=== PATIENT | male | born 1965 | race Caucasian/White ===

== ENCOUNTER 2016-04-18 10:11 | Day surgery (SDC) | payer OTHER ==
[2016-04-16 10:40] VITALS: BMI 36.6
[~2016-04-18 10:11] MED LIST: LACTATED RINGERS 1,000 ML IV SCH; LIDOCAINE 1% 20 ML VIAL (10MG/ML) FOR IV START INTRADERMA PRN
[2016-04-18 10:50] VITALS: RESP 18; TEMP 97.2
[2016-04-18] MEDS ORDERED: LIDOCAINE 1% 20 ML VIAL (10MG/ML) FOR IV START INTRADERMA ONE (10:56)
--- NOTE | 2016-04-18 11:19 | P.GSHP ---
History of Present Illness H&P Date: 04/18/16 Chief Complaint: GERD This is a 51-year-old male with Dr. Radha Lemon. Patient presents today for EGD. He's had issues with GERD. Past Medical History Past Medical History: GERD/Reflux, Hyperlipidemia, Osteoarthritis (OA) Additional Past Medical History / Comment(s): CURRENT ABDOMINAL PAIN, DIFFICULTY SWALLOWING, HX. KIDNEY STONE History of Any Multi-Drug Resistant Organisms: None Reported Past Surgical History: Orthopedic Surgery, Tonsillectomy Additional Past Surgical History / Comment(s): NAVA FUNDLIPLASTY, 2 SURGERIES ON RIGHT SHOULDER Past Anesthesia/Blood Transfusion Reactions: No Reported Reaction Past Psychological History: No Psychological Hx Reported Smoking Status: Former smoker Past Alcohol Use History: None Reported Additional Past Alcohol Use History / Comment(s): QUIT SMOKING 06/2014, STARTED SMOKING 1982, SMOKED 1 PPD Past Drug Use History: None Reported - Past Family History Father Additional Family Medical History / Comment(s): PATERNAL GRANDMOTHER-COLON CA. PATERNAL GRANDFATHER-PROSTATE CA Medications and Allergies Home Medications Medication Instructions Recorded Confirmed Type Atorvastatin [Lipitor] 20 mg PO HS 01/26/15 04/18/16 History Allergies Allergy/AdvReac Type Severity Reaction Status Date / Time No Known Allergies Allergy Verified 04/16/16 10:37 Surgical - Exam Vital Signs Temp Pulse Resp BP Pulse Ox 97.2 F L 87 18 128/88 95 04/18/16 10:48 04/18/16 10:48 04/18/16 10:48 04/18/16 10:48 04/18/16 10:48 - General well developed, no distress - Eyes PERRL - ENT normal pinna - Neck no masses - Respiratory normal expansion - Cardiovascular Rhythm: regular - Abdomen Abdomen: soft, non tender Assessment and Plan Plan: GERD. We'll perform EGD.
[2016-04-18] MEDS ORDERED: fentaNYL (PF) 50 MCG/ML 2 ML AMP ONE (11:21)
[2016-04-18] MEDS ORDERED: MIDAZOLAM 2 MG/2 ML VIAL ONE (11:21)
[2016-04-18] MEDS ORDERED: PROPOFOL 10 MG/ML 20 ML VIAL IV ONE (11:21)
--- NOTE | 2016-04-18 11:34 | P.OP ---
Date of Procedure: 04/18/16 Preoperative Diagnosis: GERD Postoperative Diagnosis: Mild antral gastritis Esophagitis Possible slipped fundal plication Procedure(s) Performed: EGD Anesthesia: MAC Surgeon: Andi Joseph Pathology: other (Antrum, esophagus) Condition: stable Disposition: PACU Description of Procedure: The patient's placed on the endoscopy table in the lateral position. He received IV sedation. The gastroscope some placed oropharynx passed into the esophagus and into the stomach. Scope was then placed through the pylorus. The first and second portion of the duodenum appeared normal. Scope was then brought back the antrum this is minimally inflamed a biopsy was performed. The scope was then retroflexed and the remainder of the stomach appeared normal. The patient a previous fundoplication wrap. This appeared to be slightly below the GE junction. The wrap appeared to be displaced inferiorly. The GE junction was at 40 cm. The distal esophagus appeared inflamed a biopsies performed. The proximal esophagus appeared normal. Scope was withdrawn for patient. The patient scheduled for a esophagram
[2016-04-18 12:23] VITALS: BP 141/79; PULSE 88
== END 2016-04-18 12:47 | disposition home or self-care (01) ==
LOC: ORWHC2ENDO 10:11
PROVIDERS: ATTEND Surgery
DX: K21.0 Gastro-esophageal reflux disease with esophagitis (principal); K29.70 Gastritis, unspecified, without bleeding; E78.5 Hyperlipidemia, unspecified; Z79.899 Other long term (current) drug therapy; Z87.891 Personal history of nicotine dependence
CPT/HCPCS: 88305; 43239; J2250; J3010; J2704; 99153

== ENCOUNTER → 2016-04-19 | Outpatient (CLI) | payer OTHER ==
--- NOTE | 2016-04-19 12:55 | FL ---
EXAMINATION: Cervical and Thoracic Esophagram, single contrast DATE OF EXAM: 04/19/2016 10:13 AM CLINICAL INDICATION: 51-year-old male with GERD, fluid sticking in the mid esophagus. History of Niss en fundoplication in January 2015. EGD performed 24 hours ago with biopsies. COMPARISON: 02/17/2015 Total Fluoroscopy Time: 1.6 minutes FINDINGS: Single contrast exam was performed with thin barium given the patient's history of very recent biopsi es. Limited examination as the patient was unable to hold barium in his mouth for assessment of the cervi wong esophagus and was also unable to accomplish large continuous swallows. There is evidence of silent aspiration. Hypopharyngeal anatomy appears preserved. There is overall normal course and caliber of the thoracic esophagus. Very mild tertiary peristaltic waves are noted in the distal third esophagus. No obstruction or discrete filling defect is identified. No sizable hiatal hernia. There are postsurg ical changes of Marichuy fundoplication seen. IMPRESSION: 1. Status post Marichuy fundoplication. 2. No obstruction or discrete filling defect encountered along the esophagus. 3. There are technical limitations in the exam as the patient had difficulty holding barium in his mo uth and could also not tolerate large continuous swallows. 4. Evidence of silent aspiration. Recommend speech pathology consultation.
== END | disposition home or self-care (01) ==
LOC: RADFLWHC 09:08
PROVIDERS: ATTEND Surgery
DX: K21.9 Gastro-esophageal reflux disease without esophagitis (principal); Z98.890 Other specified postprocedural states
CPT/HCPCS: 74220

== ENCOUNTER → 2016-05-11 | Outpatient (CLI) | payer OTHER | END | disposition home or self-care (01) | LOC: LABPAT 09:16 | PROVIDERS: ATTEND Surgery | DX: Z01.812 Encounter for preprocedural laboratory examination (principal); Z01.810 Encounter for preprocedural cardiovascular examination | CPT/HCPCS: 93005 ==

== ENCOUNTER 2016-05-28 06:25 | Inpatient (IN) | payer OTHER ==
[2016-05-21 16:02] VITALS: BMI 37.5
[~2016-05-28 06:25] MED LIST changes: +DEXAMETHASONE SOD PHOSPHATE 10 MG/ML 1 ML VIAL IV ONE; +HEPARIN SODIUM,PORCINE 5,000 UNIT/ML 1 ML VIAL SQ ONE; +HYDROmorphone 1 MG/ML 1 ML SYRINGE IVP PRN; -LIDOCAINE 1% 20 ML VIAL (10MG/ML) FOR IV START INTRADERMA PRN; +MIDAZOLAM 2 MG/2 ML VIAL IV PRN; +ONDANSETRON 4 MG/2 ML VIAL IVP ONE; +ceFAZolin 2 GM in SODIUM CHLORIDE 0.9% 100 ML IVPB ONE
[2016-05-28] MEDS ORDERED: LIDOCAINE 1% 20 ML VIAL (10MG/ML) FOR IV START INTRADERMA ONE (06:46)
[2016-05-28 07:10] LABS: Basophils # (A) 0.1 k/uL (0-0.2); Basophils % (A) 1 %; CH 29.9; CHCM 34.1; Eosinophils # (A) 0.2 k/uL (0-0.7); Eosinophils % (A) 3 %; HCT 42.9 % (39.0-53.0); HDW 2.93; HGB 14.2 gm/dL (13.0-17.5); Luc % (Auto) 3; Lymphocytes % (A) 32 %; MCH 29.2 pg (25.0-35.0); MCHC 33.2 g/dL (31.0-37.0); MCV 87.8 fL (80.0-100.0); Mean Platelet Volume 8.2; Monocytes # (A) 0.4 k/uL (0-1.0); Monocytes % (A) 7 %; Neutrophils # (A) 3.5 k/uL (1.3-7.7); Neutrophils % (A) 55 %; RBC 4.88 m/uL (4.30-5.90); WBC 6.4 k/uL (3.8-10.6); WBC (Perox) 6.44
--- NOTE | 2016-05-28 07:47 | P.GSHP ---
History of Present Illness H&P Date: 05/28/16 Chief Complaint: GERD This a 51-year-old male referred from Dr. Lemon.The patient has had long- standing problems with reflux esophagitis. The patient underwent recent EGD is found have evidence of esophagitis. Patient has been well informed on the procedure of laparoscopic Marichuy fundoplication. The patient is aware the risk of the conversion to the open procedure, risk of injury to the stomach, liver and spleen. The patient is also a risk of recurrent GERD and dysphagia symptoms. The patient understands there is a postoperative diet of full liquids for 2 weeks after surgery. - Constitutional Constitutional: Reports as per HPI Past Medical History Past Medical History: GERD/Reflux, Hyperlipidemia, Osteoarthritis (OA) Additional Past Medical History / Comment(s): HX KIDNEY STONE. OA RT SHOULDER. EXTRACTION 7 TEETH ON 05/18/16. History of Any Multi-Drug Resistant Organisms: None Reported Past Surgical History: Orthopedic Surgery, Tonsillectomy Additional Past Surgical History / Comment(s): NAVA FUNDOPLICATION. RT SHOULDER X2. Past Anesthesia/Blood Transfusion Reactions: No Reported Reaction Past Psychological History: No Psychological Hx Reported Smoking Status: Former smoker Past Alcohol Use History: None Reported Additional Past Alcohol Use History / Comment(s): QUIT SMOKING 06/2015, SMOKED 1PPD STARTED SMOKING 1982 Past Drug Use History: None Reported - Past Family History Mother Family Medical History: No Reported History Father Additional Family Medical History / Comment(s): PATERNAL GRANDMOTHER-COLON CA. PATERNAL GRANDFATHER-PROSTATE CA Medications and Allergies Home Medications Medication Instructions Recorded Confirmed Type Atorvastatin [Lipitor] 20 mg PO HS 01/26/15 05/21/16 History Omeprazole 40 mg PO DAILY 05/10/16 05/21/16 History Ibuprofen [Motrin] 800 mg PO Q8H PRN 05/21/16 05/21/16 History Allergies Allergy/AdvReac Type Severity Reaction Status Date / Time No Known Allergies Allergy Verified 05/21/16 15:40 Surgical - Exam Vital Signs Temp Pulse Resp BP Pulse Ox 97.8 F 67 18 160/94 98 05/28/16 06:43 05/28/16 06:43 05/28/16 06:43 05/28/16 06:43 05/28/16 06:43 - General well developed, no distress - Eyes PERRL - Neck no masses - Respiratory normal expansion - Cardiovascular Abnormal Heart Sounds: systolic murmur - Abdomen Abdomen: soft, non tender Results - Labs 05/28/16 06:47 Assessment and Plan Plan: GERD. We'll perform laparoscopic Marichuy fundal plication.
[2016-05-28] MEDS ORDERED: NEOSTIGMINE 1 MG/ML 10 ML VIAL ONE (07:50)
[2016-05-28] MEDS ORDERED: fentaNYL (PF) 50 MCG/ML 2 ML AMP ONE (07:50)
[2016-05-28] MEDS ORDERED: LIDOCAINE 1% INJ 10MG/ML (20 ML MDV) ONE (07:50)
[2016-05-28] MEDS ORDERED: PHENYLEPHRINE-0.9% NACL SYG 1 MG/10 ML SYRINGE ONE (07:50)
[2016-05-28] MEDS ORDERED: SUCCINYLCHOLINE CHLORIDE 100 MG/5 ML SYR IV ONE (07:50)
[2016-05-28] MEDS ORDERED: PROPOFOL 10 MG/ML 20 ML VIAL IV ONE (07:50)
[2016-05-28] MEDS ORDERED: ROCURONIUM BROMIDE 10 MG/ML 10 ML VIAL IV ONE (07:50)
[2016-05-28] MEDS ORDERED: MIDAZOLAM 2 MG/2 ML VIAL ONE (07:50)
[2016-05-28] MEDS ORDERED: GLYCOPYRROLATE 0.2 MG/ML 2 ML VIAL ONE (07:50)
[2016-05-28] MEDS ORDERED: BUPIVACAIN-EPI 0.25%-1:200,000 30 ML VIAL SQ ONE (08:24)
[2016-05-28] MEDS ORDERED: METHYLENE BLUE 15 MG in SODIUM CHLORIDE 0.9% 500 ML IRRIGATION ONE (08:45)
--- NOTE | 2016-05-28 09:20 | P.OP ---
Date of Procedure: 05/28/16 Preoperative Diagnosis: GERD Dysphagia Slipped fundal plication Postoperative Diagnosis: Slipped fundoplication Procedure(s) Performed: Lysis of adhesion Marichuy fundoplication with 180 wrap Gastrorrhaphy Anesthesia: RENETTA Surgeon: Andi Joseph Estimated Blood Loss (ml): 5 Pathology: other (Stomach) Condition: stable Disposition: PACU Description of Procedure: The patient's placed on the operating table in the supine position. He received general anesthesia and then was placed in dorsal lithotomy position. The the abdomen was prepped and draped usual sterile fashion. The skin incision sites were anesthetized 1% local Xylocaine. Using 11 blade the skin was incised in the left periumbilical area and then using a 5 mm blade less trocar under direct visitation the peritoneal cavity is entered. The abdomen was insufflated and then after adequate insufflation the laparoscope placed back into the pleural cavity. Next a 5 mm trocar was placed in the right epigastric position and another 5 mm trochars placed in the right lateral position and then the left lateral position and then a 8 mm trocar was placed epigastric position. The left lateral lobe liver was retracted. The fundoplication wrap was examined. There were adhesions between the stomach and liver. These were lysed with sharp dissection. The fundoplication wrap was visualized and then the fundoplication wrap was taken down from the liver. On dissection of the fundoplication wrap there was some serosal tears of the stomach. The fundoplication wrap was undone. And then the stomach fundoplication was repaired by undoing the fundoplication. At this point the medial area of the fundoplication wrap was examined. Due to the seromuscular tears on the stomach was decided perform a small wedge resection of the stomach in order to prevent any risk of leakage. The 5 mm left periumbilical trocar was exchanged for a 12 mm trocar. And then powered echelon stapler was used to perform a wedge resection of the gastric fundus. The stomach was then insufflated methylene blue normal saline. There is no evidence of any leakage of the stomach. The small gastric wedge specimen was brought up through the 12 mm trocar site. The abdomen was irrigated. As no bleeding seen. The 180 wrap was left in position. At this point the trochars withdrawn. The skin was closed interrupted 3-0 Monocryl suture. Dermabond dressings was applied. Patient top procedure well and was sent to recovery in stable condition.
[2016-05-28] MEDS ORDERED: LACTATED RINGERS 1,000 ML IV ONE ×3 (09:22→13:39)
[2016-05-28] MEDS ORDERED: ONDANSETRON 4 MG/2 ML VIAL IVP PRN (09:22)
[2016-05-28] MEDS ORDERED: HYDROcodone/APAP 5-325MG 1 EACH TAB PO PRN (09:22)
[2016-05-28] MEDS ORDERED: ACETAMINOPHEN TAB 325 MG TAB PO PRN (09:22)
[2016-05-28] MEDS ORDERED: NALOXONE 0.4 MG/ML 1 ML VIAL IV PRN (09:22)
[2016-05-28] MEDS: HYDROmorphone 1 MG/ML 1 ML SYRINGE IVP PRN ×3 (09:51→10:29)
[2016-05-28] MEDS ORDERED: HYDROmorphone 1 MG/ML 1 ML SYRINGE IVP ONE (11:34)
[2016-05-28] MEDS ORDERED: HYDROcodone/APAP 7.5-325MG 1 EACH TAB PO ONE (11:47)
--- NOTE | 2016-05-28 16:05 | FL ---
Single contrast esophagram EXAMINATION TYPE: FL UGI w esophagus DATE OF EXAM: 05/28/2016 3:50 PM COMPARISON: April 19, 2016 CLINICAL HISTORY: Status post Maxim fundoplication ReVision The patient ingested contrast without difficulty or delay. Noted are changes of Maxim fundoplicatio n. Small outpouching at the GE junction is likely related to postoperative change rather than a leak . There is no evidence for leak or obstruction. Small amount of residual contrast within the distal e sophagus. IMPRESSION: Post-surgical change of Maxim fundoplication without evidence for obstruction or definit e leak.
[2016-05-28] MEDS: KETOROLAC 30 MG/ML 1 ML VIAL IVP SCH ×3 (16:12→21:28)
[2016-05-29] MEDS: KETOROLAC 30 MG/ML 1 ML VIAL IVP SCH ×2 (03:58→09:06)
[2016-05-29 07:43] VITALS: BP 107/76; PULSE 70; RESP 18; TEMP 96.2
--- NOTE | 2016-05-29 14:23 | P.DS ---
Providers Date of admission: 05/28/16 06:25 Expected date of discharge: 05/29/16 Attending physician: Andi Joseph Consults: 05/28/16 09:22 Consult Physician Routine Consulting Provider: Fritz Lemon Consult Reason/Comments: Medical management Do you want consulting provider notified?: Yes Primary care physician: Fritz Lemon Hospital Course: Patient is a 51-year-old male, referred from Dr. Lemon, with medical history significant for GERD and previous Marichuy fundoplication in 2014. Approximately 2 weeks ago, patient started experiencing symptoms of dysphagia. Upper GI and EGD showed evidence of possible slipped fundoplication. Patient presented for elective laparoscopic Marichuy fundoplication and underwent lysis of adhesions; Maxim fundoplication with 180 wrap; and gastrorrhaphy. Patient tolerated procedure well. Postoperative upper GI/barium swallow x-ray without evidence of leak or perforation. Patient had an uneventful postoperative recovery and was deemed stable for discharge to home with follow-up in the outpatient setting. Discharge diagnoses: 1. GERD. 2. Slipped fundoplication. 3. Dysphagia. 4. Status post lysis of adhesions; Maxim fundoplication with 180 wrap; gastrorrhaphy The above impression and plan have been discussed and directed by Dr. Joseph. Rabia GUAMAN acting as scribe for Dr. Joseph. Pertinent Studies: Upper GI/barium swallow x-ray Procedures: Lysis of adhesion Marichuy fundoplication with 180 wrap Gastrorrhaphy Patient Condition at Discharge: Good Plan - Discharge Summary New Discharge Prescriptions: HYDROcodone/APAP 7.5-325MG [[place] 7.5-325] 1 each PO Q4H PRN #60 tab PRN Reason: Pain Discharge Medication List Atorvastatin [Lipitor] 20 mg PO HS 01/26/15 [History] HYDROcodone/APAP 7.5-325MG [[place] 7.5-325] 1 each PO Q4H PRN #60 tab 05/28/16 [ Rx] Follow up Appointment(s)/Referral(s): Fritz Lemon MD [Primary Care Provider] - 06/05/16 10:10 am Andi Joseph MD [STAFF PHYSICIAN] - 06/12/16 2:10 pm Patient Instructions/Handouts: *Surgery [facility] - ([facility]) Lap Marichuy Fundiplication Post-Op Instructions, Hydrocodone/Acetaminophen (By mouth) Activity/Diet/Wound Care/Special Instructions: No heavy lifting, pushing, or pulling items greater than 10 pounds. Full liquid diet for 2 weeks. No caffeinated beverages or straws. Shower daily, no soaking in bath tubs, pools, or hot tubs. No driving while taking pain medication. Notify surgeon with any signs or symptoms of infection, increased pain, or not tolerating diet. Discharge Disposition: HOME SELF-CARE
== END 2016-05-29 12:10 | disposition home or self-care (01) | DRG 328 ==
LOC: 2ORWHC 06:25 → 5MS5E 14:53
PROVIDERS: ADMIT Surgery; ATTEND Surgery
PROC: 0DQ64ZZ Repair Stomach, Percutaneous Endoscopic Approach (ICD-10-PCS; 2016-05-28)
PROC: 0DV44ZZ Restriction of Esophagogastric Junction, Percutaneous Endoscopic Approach (ICD-10-PCS; principal; 2016-05-28 07:40)
DX: K91.89 Other postprocedural complications and disorders of digestive system (principal); R13.10 Dysphagia, unspecified; Y83.8 Other surgical procedures as the cause of abnormal reaction of the patient, or of later complication, without mention of misadventure at the time of the procedure; E78.5 Hyperlipidemia, unspecified; K21.9 Gastro-esophageal reflux disease without esophagitis; M19.011 Primary osteoarthritis, right shoulder; Z79.899 Other long term (current) drug therapy; Z80.0 Family history of malignant neoplasm of digestive organs; Z87.442 Personal history of urinary calculi; Z87.891 Personal history of nicotine dependence; K44.9 Diaphragmatic hernia without obstruction or gangrene
CPT/HCPCS: 74240; 85025; 88307

== ENCOUNTER → 2017-01-28 | Outpatient (CLI) | payer OTHER ==
--- NOTE | 2017-01-28 08:57 | US ---
EXAMINATION TYPE: US abdomen complete DATE OF EXAM: 01/28/2017 COMPARISON: None CLINICAL HISTORY: 52-year-old male K21.0 Gastroesophageal Reflux Disease. Patient stated has GERD wit h history of Marichuy Fundoplication and revision; HT5'10 and WT 267lbs; on meds for cholesterol and GE RD; prior left renal stone. TECHNIQUE: Multiple sonographic images of the abdomen are obtained. FINDINGS: Liver Length: 18.3 cm Gallbladder Wall: 0.2 cm CBD: 0.6 cm Spleen: 11.3 cm Right Kidney: 11.4 x 6.7 x 5.1 cm Left Kidney: 11.5 x 6.4 x 5.8 cm Pancreas: Only a small portion of the pancreatic neck is seen. Remainder suboptimally visualized due to shadowing from bowel gas. Liver: Mildly enlarged and markedly echogenic and attenuating. This secondary limits assessment for f ocal lesion. Gallbladder: wnl Evidence for sonographic Zuniga's sign: No CBD: upper limits of normal Spleen: wnl Right Kidney: wnl Left Kidney: wnl Upper IVC: wnl Abd Aorta: wnl IMPRESSION: 1. Mild hepatomegaly but with marked hepatic steatosis. Correlate with LFTs, lipid profile, and patie nt risk factors. 2. No cholelithiasis or biliary ductal dilatation.
== END | disposition home or self-care (01) ==
LOC: RADUSWWP 07:30
PROVIDERS: ATTEND Family Medicine
DX: K76.0 Fatty (change of) liver, not elsewhere classified (principal); R16.0 Hepatomegaly, not elsewhere classified; K21.0 Gastro-esophageal reflux disease with esophagitis
CPT/HCPCS: 76700

== ENCOUNTER → 2017-06-17 | Outpatient (CLI) | payer OTHER ==
--- NOTE | 2017-06-17 10:46 | FL ---
EXAMINATION TYPE: FL barium swallow DATE OF EXAM: 06/17/2017 CLINICAL HISTORY: Recurrent gastroesophageal reflux and nausea status post Marichuy fundoplication x 2 . TECHNIQUE: Single contrast esophagram was performed. 1min 51sec fluoroscopic time was utilized with 3 8 images saved. FINDINGS: The patient swallowed contrast without difficulty or delay. Esophageal peristalsis and mo tility are within normal limits. There is good flow of contrast along the diaphragmatic hiatus into t he stomach, there is no evidence of contrast extravasation to suggest leak. A small recurrent hiatal hernia is seen persistently throughout the examination. No gastroesophageal reflux is seen in the gra vity dependent portion of the examination, however moderate gastroesophageal reflux is seen to the le yumiko of the midthoracic esophagus on the gravity independent portion of the examination. IMPRESSION: 1. Small recurrent hiatal hernia with moderate gastroesophageal reflux level of the midthoracic esoph kay in the gravity independent portion of the examination without Valsalva maneuver. 2. No evidence of leak or significant obstruction.
== END | disposition home or self-care (01) ==
LOC: RADFLMAIN 10:02
PROVIDERS: ATTEND Surgery
DX: K44.9 Diaphragmatic hernia without obstruction or gangrene (principal); K21.9 Gastro-esophageal reflux disease without esophagitis
CPT/HCPCS: 74220

== ENCOUNTER 2020-06-30 07:20 | Day surgery (SDC) | payer BC, OTHER ==
[~2020-06-30 07:20] MED LIST changes: -DEXAMETHASONE SOD PHOSPHATE 10 MG/ML 1 ML VIAL IV ONE; -HEPARIN SODIUM,PORCINE 5,000 UNIT/ML 1 ML VIAL SQ ONE; -HYDROmorphone 1 MG/ML 1 ML SYRINGE IVP PRN; +LIDOCAINE 1% (10MG/ML) FOR IV START INTRADERMA PRN; -MIDAZOLAM 2 MG/2 ML VIAL IV PRN; -ONDANSETRON 4 MG/2 ML VIAL IVP ONE; -ceFAZolin 2 GM in SODIUM CHLORIDE 0.9% 100 ML IVPB ONE
[2020-06-30 07:44] VITALS: RESP 16; TEMP 97.8
[2020-06-30 07:53] LABS: Glucose,Whole Blood 178 mg/dL (75-99)
[2020-06-30] MEDS ORDERED: PROPOFOL 10 MG/ML 20 ML VIAL IV ONE (08:14)
[2020-06-30] MEDS ORDERED: LIDOCAINE 1% INJ 10MG/ML (20 ML MDV) ONE (08:14)
--- NOTE | 2020-06-30 08:31 | P.OP ---
Date of Procedure: 06/30/20 Preoperative Diagnosis: Screening colonoscopy Postoperative Diagnosis: Diverticulosis Procedure(s) Performed: Colonoscopy Anesthesia: MAC Surgeon: Andi Joseph Pathology: none sent Condition: stable Disposition: PACU Description of Procedure: The patient's placed on the endoscopy table in the lateral position. He received IV sedation. Digital rectal exam was performed which revealed no abnormalities. Flexible colonoscope was then placed patient anus passed throughout the entire colon. The ileocecal valve was visually is. The cecum, ascending and transverse colon appeared normal. In the descending; there is moderate diverticular changes. There was no evidence of diverticulitis. The scope was then brought back the rectum and this appeared normal. Scope the scope was withdrawn for patient.
[2020-06-30 08:49] VITALS: BP 143/90; PULSE 69
--- NOTE | 2020-06-30 08:59 | P.GSHP ---
History of Present Illness H&P Date: 06/30/20 Chief Complaint: Screening colonoscopy This a 55-year-old male presents safe for screening colonoscopy. Patient denies a significant GI complaints.. Past Medical History Past Medical History: GERD/Reflux, Hypertension, Osteoarthritis (OA) Additional Past Medical History / Comment(s): HX KIDNEY STONE. EXTRACTION 7 TEETH ON 05/18/16. History of Any Multi-Drug Resistant Organisms: None Reported Past Surgical History: Orthopedic Surgery, Tonsillectomy Additional Past Surgical History / Comment(s): NAVA FUNDOPLICATION. RT SHOULDER X2. Past Anesthesia/Blood Transfusion Reactions: No Reported Reaction Past Psychological History: No Psychological Hx Reported Smoking Status: Former smoker Past Alcohol Use History: None Reported Additional Past Alcohol Use History / Comment(s): QUIT SMOKING 06/2015, SMOKED 1PPD STARTED SMOKING 1982 Past Drug Use History: None Reported - Past Family History Mother Family Medical History: No Reported History Father Additional Family Medical History / Comment(s): PATERNAL GRANDMOTHER-COLON CA. PATERNAL GRANDFATHER-PROSTATE CA Medications and Allergies Home Medications Medication Instructions Recorded Confirmed Type Losartan [Cozaar] 25 mg PO QAM 06/28/20 06/30/20 History metFORMIN HCL 500 mg PO BID 06/28/20 06/30/20 History Allergies Allergy/AdvReac Type Severity Reaction Status Date / Time No Known Allergies Allergy Verified 06/30/20 07:38 Surgical - Exam Vital Signs Temp Pulse Resp BP Pulse Ox 97.8 F 65 16 147/80 97 06/30/20 07:43 06/30/20 07:43 06/30/20 07:43 06/30/20 07:43 06/30/20 07:43 - General well developed, well nourished, no distress - Eyes PERRL - ENT normal pinna - Neck no masses - Respiratory normal expansion - Cardiovascular Rhythm: regular - Abdomen Abdomen: soft, non tender Results - Labs Abnormal Lab Results - Last 24 Hours (Table) 06/30/20 Range/Units 07:51 POC Glucose (mg/dL) 178 H (75-99) mg/dL Assessment and Plan Assessment: We'll perform screening colonoscopy.
== END 2020-06-30 09:36 | disposition home or self-care (01) ==
LOC: ORWHC2ENDO 07:20
PROVIDERS: ATTEND Surgery
DX: Z12.11 Encounter for screening for malignant neoplasm of colon (principal); K57.30 Diverticulosis of large intestine without perforation or abscess without bleeding; K21.9 Gastro-esophageal reflux disease without esophagitis; I10 Essential (primary) hypertension; M19.90 Unspecified osteoarthritis, unspecified site; Z79.84 Long term (current) use of oral hypoglycemic drugs; Z79.899 Other long term (current) drug therapy; Z80.0 Family history of malignant neoplasm of digestive organs; Z80.42 Family history of malignant neoplasm of prostate; Z87.442 Personal history of urinary calculi; Z87.891 Personal history of nicotine dependence
CPT/HCPCS: J2001; J2704; G0121

== ENCOUNTER → 2022-07-16 | Outpatient (CLI) | payer BC ==
--- NOTE | 2022-07-16 11:37 | US ---
EXAMINATION TYPE: US carotid duplex BILAT DATE OF EXAM: 07/16/2022 COMPARISON: NONE CLINICAL INDICATION: Male, 57 years old with history of G45.9 TRANSIENT CEREBRAL ISCHEMIC ATTACK; TIA . Prior smoker. TECHNIQUE: Carotid duplex ultrasound examination. Indirect Doppler criteria was utilized. FINDINGS: EXAM MEASUREMENTS: RIGHT: Peak Systolic Velocity (PSV) cm/sec ----- Right CCA: 68.2 ----- Right ICA: 58.8 ----- Right ECA: 99.8 ICA/CCA ratio: 0.86 RIGHT: End Diastole cm/sec ----- Right CCA: 11.5 ----- Right ICA: 16.9 ----- Right ECA: 13.7 LEFT: Peak Systolic Velocity (PSV) cm/sec ----- Left CCA: 59.2 ----- Left ICA: 80.8 ----- Left ECA: 120 ICA/CCA ratio: 1.36 LEFT: End Diastole cm/sec ----- Left CCA: 15.0 ----- Left ICA: 29.6 ----- Left ECA: 18.8 VERTEBRALS (direction of flow): Right Vertebral: Unable to visualize Left Vertebral: Antegrade Rhythm: Normal SUPERVISOR POST WAVE NOTES: Some plaque was seen within bilateral bulbs and bifurcations. No elevated velociti es. *Unable to visualize right vertebral artery. IMPRESSION: No hemodynamically significant stenosis in either internal carotid artery. Criteria for Assigning % of Stenosis / Diameter reduction (Estimation based on the indirect measurements of the internal carotid artery velocities (ICA PSV). 1. Normal (no stenosis)=ICA PSV < 125 cm/s: ratio < 2.0: ICA EDV<40 cm/s. 2. Less than 50% stenosis=ICA PSV < 125 cm/s: ratio < 2.0: ICA EDV<40 cm/s. 3. 50 to 69% stenosis=ICA PSV of 125 to 230 cm/s: ration 2.0 ? 4.0: ICA EDV 40-100 cm/s. 4. Greater than 70% stenosis to near occlusion= ICA PSV > 230 cm/s: ratio > 4.0: ICA EDV > 100 cm/s. 5. Near occlusion= ICA PSV velocities may be low or undetectable: variable ratio and ICA EDV. 6. Total occlusion=unable to detect flow.
--- NOTE | 2022-07-16 11:45 | CT ---
EXAMINATION TYPE: CT brain wo con CT DLP: 1217.1 mGycm, Automated exposure control for dose reduction was used. DATE OF EXAM: 07/16/2022 11:38 AM COMPARISON: None. CLINICAL INDICATION:Male, 57 years old with history of G45.9, Transient cerebral ischemic attack TECHNIQUE: Brain: Multiple axial CT images of the brain were obtained without IV contrast. Coronal and sagittal reformats reviewed. FINDINGS: Brain: Extra-axial spaces: No abnormal extra-axial fluid collections. Ventricular system: Within normal limits Cerebral parenchyma: No acute intraparenchymal hemorrhage or mass effect. The soto-white junction is well differentiated. Remote lacunar injury versus prominent perivascular space of the left inferior basal ganglia. Cerebellum: Unremarkable. Mass effect: No evidence of midline shift. Intracranial vasculature: Atherosclerotic calcifications of the intracranial vessels. Soft tissues: Normal. Calvarium/osseous structures: No depressed skull fracture. Paranasal sinuses and mastoid air cells: Clear Visualized orbits: Orbital contents are intact. IMPRESSION: 1. No acute intracranial process. 2. Remote lacunar injury versus prominent perivascular space in the left inferior basal ganglia.
--- NOTE | 2022-07-16 12:34 | CA ---
Transthoracic Echo Report Name: Jose Gray Age: 57 Gender: M : 1965 Exam Date: 07/16/2022 11:55 Exam Location: [facility] Ht (in): 70 Wt (lb): 236 Ordering Physician: Fritz Lemon MD Attending/Referring Phys: Fritz Lemon MD Bench Inspector Linda Schroeder, [facility] Procedure CPT: Indications: G45.9 Cardiac Hx: Technical Quality: Good Contrast 1: Total Dose (mL): Contrast 2: Total Dose (mL): MEASUREMENTS (Male / Female) Normal Values 2D ECHO LV Diastolic Diameter PLAX 4.6 cm 4.2 - 5.9 / 3.9 - 5.3 cm LV Systolic Diameter PLAX 3.0 cm IVS Diastolic Thickness 1.2 cm 0.6 - 1.0 / 0.6 - 0.9 cm LVPW Diastolic Thickness 1.1 cm 0.6 - 1.0 / 0.6 - 0.9 cm LV Relative Wall Thickness 0.5 RV Internal Dim ED PLAX 3.4 cm LA Systolic Diameter LX 3.3 cm 3.0 - 4.0 / 2.7 - 3.8 cm LA Volume 53.6 cm??? 18 - 58 / 22 - 52 cm??? M-MODE Aortic Root Diameter MM 3.6 cm MV E Point Septal Separation 0.8 cm AV Cusp Separation MM 2.4 cm DOPPLER AV Peak Velocity 143.9 cm/s AV Peak Gradient 8.3 mmHg MV Area PHT 4.3 cm??? Mitral E Point Velocity 92.8 cm/s Mitral A Point Velocity 74.2 cm/s Mitral E to A Ratio 1.3 MV Deceleration Time 174.6 ms MV E' Velocity 8.4 cm/s Mitral E to MV E' Ratio 11.0 FINDINGS Left Ventricle Left ventricular ejection fraction is estimated at 55-60 %. Left ventricular cavity size normal. Mildly increased septal wall thickness. Right Ventricle Mild right ventricular dilatation. No TR unable to estimate the right ventricular systolic pressure. Right Atrium Normal right atrial size. Left Atrium Normal left atrial size. Mitral Valve Structurally normal mitral valve. No mitral stenosis or prolapse. Mild mitral regurgitation Aortic Valve Trileaflet aortic valve. Tricuspid Valve Structurally normal tricuspid valve. No tricuspid stenosis, or prolapse. Trace tricuspid regurgitation Pulmonic Valve Pulmonic valve not well visualized. Pericardium Normal pericardium. No pericardial effusion. Aorta Normal size aortic root and proximal ascending aorta. CONCLUSIONS 1. Normal left ventricle size and systolic function 2. Mild mitral regurgitation Previewed by: Dr. Nilson Smith MD (Electronically Signed) Final Date: 16 Jul 2022 12:33
== END | disposition home or self-care (01) ==
LOC: RADUSWWP 10:43
PROVIDERS: ATTEND Family Medicine
DX: G45.9 Transient cerebral ischemic attack, unspecified (principal); Z87.891 Personal history of nicotine dependence
CPT/HCPCS: 70450; 93306; 93880

== ENCOUNTER → 2024-06-03 | Outpatient (CLI) | payer BC ==
--- NOTE | 2024-06-03 08:14 | MR ---
EXAMINATION TYPE: MR brain wo con DATE OF EXAM: 06/03/2024 7:06 AM COMPARISON: None. CLINICAL INDICATION: Male, 59 years old with history of Z86.73 HX OF TIA R20.0 LEFT FACIAL NUMBNESS, Left facial numbness, possible stroke TECHNIQUE: Multi planar multi sequence imaging of the brain. FINDINGS: The ventricles, basal cisterns and sulci overlying the cerebral convexities are mildly enlarged. There is evidence of mild periventricular white matter ischemic demyelination. Remote deep white matter insults are also noted. No acute edema is seen on diffusion weighted imaging. There is no evidence for midline shift or mass effect. Acute intracranial hemorrhage or extra-axial collection is not evident. The mastoid air cells are well-aerated. Mucosal thickening maxillary ethmoidal and frontal sinuses. IMPRESSION: Age-related atrophic and chronic small vessel ischemic change. No acute intracranial process at this time. [facility], , 06/03/2024 8:12 AM
== END | disposition home or self-care (01) ==
LOC: RADMRIMAIN 06:15
PROVIDERS: ATTEND Psychiatry & Neurology Neurology
DX: G31.1 Senile degeneration of brain, not elsewhere classified (principal); I67.82 Cerebral ischemia; R20.0 Anesthesia of skin; Z86.73 Personal history of transient ischemic attack (TIA), and cerebral infarction without residual deficits
CPT/HCPCS: 70551

== ENCOUNTER → 2024-09-16 | Outpatient (CLI) | payer BC ==
--- NOTE | 2024-09-16 10:45 | US ---
EXAMINATION TYPE: US venous doppler duplex LE LT DATE OF EXAM: 09/16/2024 10:20 AM COMPARISON: NONE CLINICAL INDICATION: Male, 59 years old with history of R60.0 LOCALIZED EDEMA; Pt states pain to left lower leg, no known prior DVT, Pain TECHNIQUE: The lower extremity deep venous system is examined utilizing real time linear array sonog bryanna with graded compression, color doppler sonography, and spectral doppler. SIDE PERFORMED: Left FINDINGS: VESSELS IMAGED: Common Femoral Vein Deep Femoral Vein Greater Saphenous Vein * Femoral Vein Popliteal Vein Small Saphenous Vein * Proximal Calf Veins (* superficial vessels) Left Leg: Negative for DVT, Color Doppler imaging shows patency of the vessels. Spectral waveforms a re within normal limits. IMPRESSION: No evidence of deep vein thrombosis of the left lower extremity. [facility], , 09/16/2024 10:42 AM
== END | disposition home or self-care (01) ==
LOC: RADUSWWP 09:57
PROVIDERS: ATTEND Family Medicine
DX: R60.0 Localized edema (principal); M79.662 Pain in left lower leg

== ENCOUNTER → 2024-09-29 | Outpatient (CLI) | payer BC ==
--- NOTE | 2024-09-29 09:59 | US ---
EXAMINATION TYPE: US arterial LE single level DATE OF EXAM: 09/29/2024 9:33 AM COMPARISONS: None. CLINICAL INDICATION: Male, 59 years old with history of R60.0 LOCALIZED EDEMA; TECHNIQUE: Systolic pressures were taken of the upper and lower extremity arteries with ankle-brachia l indices and toe brachial indices calculated bilaterally. History of: Smoker: Previous Hypertension: Yes Diabetic: Yes Hyperlipidemia: Yes TIA/CVA: No Previous Vascular Surgery: No SD: No Vascular Ulcers: No Claudication: No Gangrene: No FINDINGS: Doppler Waveforms: Right: Biphasic Left: Biphasic Brachial Artery systolic pressure: Right: 144 Left: 142 Posterior Tibial artery systolic pressure: Right: 160 Left: 166 Dorsalis Pedis artery systolic pressure: Right: 156 Left: 158 Ankle-Brachial Indices: Right: 1.11 Left: 1.15 IMPRESSION: ANABEL: Right: Normal 0.9 - 1.4, Recommendation: None Left: Normal 0.9 - 1.4, Recommendation: None [facility], , 09/29/2024 9:57 AM
== END | disposition home or self-care (01) ==
LOC: RADUSWWP 08:56
PROVIDERS: ATTEND Family Medicine
DX: E11.9 Type 2 diabetes mellitus without complications (principal); E78.5 Hyperlipidemia, unspecified; R60.0 Localized edema; I10 Essential (primary) hypertension
CPT/HCPCS: 93922